=== PATIENT | female | born 2000 | race Caucasian/White ===

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

== ENCOUNTER 2018-10-11 17:42 | Emergency (ER) | payer OTHER ==
[~2018-10-11] VITALS: Ht 160 cm; Wt 65.8 kg
[~2018-10-11 17:42] MED LIST: PROZAC40 MG PO
== END 2018-10-11 19:09 | disposition home or self-care (01) ==
LOC: ED 17:42
DX: S93.401A Sprain of unspecified ligament of right ankle, initial encounter (principal); W22.8XXA Striking against or struck by other objects, initial encounter; F41.9 Anxiety disorder, unspecified; F32.9 Major depressive disorder, single episode, unspecified; Z87.891 Personal history of nicotine dependence
CPT/HCPCS: 73610; 99283-25